=== PATIENT | male | born 1985 | race Caucasian/White ===

== ENCOUNTER 2017-02-03 09:49 | Inpatient (IN) | payer SELFPAY ==
[2017-02-03] MEDS ORDERED: LORazepam 2 MG/ML INJ ONE ×2 (09:53→10:10)
[2017-02-03] MEDS ORDERED: LORazepam 2 MG/ML INJ IVP ONE ×3 (09:56→10:12)
[2017-02-03] MEDS ORDERED: NS 1,000 ML IV ONE (10:14)
--- NOTE | 2017-02-03 10:19 | EDPHY ---
General - History Smoking Status: Never smoked Narrative: CHIEF COMPLAINT: Alcohol withdrawal, seizure HISTORY OF PRESENT ILLNESS: Patient presents by EMS from the [facility]. He seen at time of arrival. Report alcohol cessation abruptly with seizure yesterday and another seizure this morning. The seizure yesterday was a witness. The seizure this morning was witnessed by the [facility] staff. They went to give him his Librium when he vomited and had a seizure. This lasted for 1-2 minutes. He is feeling shaky and diaphoretic. He is feeling climb. His normal intake of alcohol was 750 mL of vodka daily. He stopped drinking Wednesday. He has no headache. He has no fever or chills. He does have episodes of vomiting. No other associated complaints or modifying factors. REVIEW OF SYSTEMS: Ten systems reviewed and are negative unless otherwise noted in the HPI PCP: None SPECIALISTS: Previous personal injury law specialist PAST MEDICAL HISTORY: Alcohol abuse PAST SURGICAL HISTORY: No surgeries SOCIAL HISTORY: Nonsmoker. Heavy alcohol use FAMILY HISTORY: Noncontributory EXAMINATION General Appearance: Alert, no distress, diaphoretic and tremulous Head: normocephalic, atraumatic Eyes: Pupils equal and round, no conjunctival pallor or injection. EOMs intact. No nystagmus ENT, Mouth: Mucous membranes moist Neck: Normal inspection, supple, non-tender Respiratory: Lungs are clear to auscultation tachypneic. No wheezing, rhonchi or crackles Cardiovascular: Tachycardic rate. Regular rhythm. No murmur. Gastrointestinal: Abdomen is soft and nontender Back: non-tender, no bony abnormalities Neurological: GCS 15. A&O, nonfocal, tremulous. Strength is symmetric. No unilateral deficits. Skin: Warm and dry, no rash no petechiae or purpura Extremities: Nontender, no pedal edema Psychiatric: Mood and affect normal DIFFERENTIAL DIAGNOSES: Including but not limited to alcohol withdrawal seizure, delirium tremens, alcohol abuse MDM: 10:15 a.m. Heavy alcohol user with cessation abruptly. Seizure yesterday that was unwitnessed. Seizure this morning that was witnessed at the [facility]. He is diaphoretic, tachycardic and tachypneic. He has no infective complaints. He is not cephalopathy. He is not hyper intensive or hyperthermic. Aggressive IV Ativan has been initiated. Plan for ICU admit. I discussed with Dr. Renee and she will evaluate. 10:20 a.m. Patient re-evaluated. No seizure-like activity thus far. His tachycardia is slowly improving. 10:35 a.m. Case discussed with hospitalist Betty Hartmann. Patient will be admitted to Dr. Schaeffer. He is admitted to the ICU. At this point he remains awake and alert. He is tachycardic but not encephalopathic. We are continue close monitoring and Ativan pushes. He is admitted in stable condition. 10:40 a.m. Patient re-evaluated. Still tremulous but he is awake and alert and improving. 11:00 a.m. Patient re-evaluated. He is starting to feel much better. Tachycardic but his rate is improving. He remains awake and alert. No encephalopathy. No seizure- like activity. 11:10 a.m. Patient re-evaluated. Still no seizure-like activity. He continues to improve. Room assignment has been made a report be called. He will be admitted in stable condition. (Simon Key) Differential Diagnosis: Differential diagnosis includes though not limited to delirium tremens, alcoholic ketoacidosis, hypoglycemia, dehydration. (Lesvia Renee) Discussion: This patient was seen and examined by me. He presents in alcohol withdrawal-- tachycardic, hypertensive and tremulous. Repeat doses of IV Ativan needed to control his symptoms. Chest is clear to auscultation, Cardiovascular-regular tachycardia, neurologic exam nonfocal. (Lesvia Renee) - Objective Vital Signs: Initial Vital Signs Temperature (C) 37.7 C 02/03/17 10:02 Heart Rate 125 H 02/03/17 10:02 Respiratory Rate 30 H 02/03/17 10:02 Blood Pressure 177/121 H 02/03/17 10:02 O2 Sat (%) 94 02/03/17 10:02 O2 Delivery Mode Room Air Allergies/Adverse Reactions: No Known Allergies Allergy (Unverified 02/03/17 10:04) Home Medications: Medication Instructions Recorded Ibuprofen/Diphenhydramine Cit 1 each PO HS PRN 02/03/17 [MOTRIN PM CAPLET] Laboratory Results: Laboratory Results 02/03/17 09:40 02/03/17 09:40 Medications Given: Chlordiazepoxide HCl (Librium) 25 mg PO TID RICHIE Stop: 08/02/17 16:29 Last Admin: 02/04/17 00:20 Dose: 25 mg Potassium Chloride/Sodium Chloride (Ns W/ 20 Kcl/L) 1,000 mls @ 75 mls/hr IV CONT RICHIE Stop: 08/02/17 11:29 Last Admin: 02/03/17 11:32 Dose: 1,000 mls Thiamine HCl 500 mg/ Sodium (Chloride) 105 mls @ 210 mls/hr IV DAILY RICHIE Stop: 08/02/17 12:14 Last Admin: 02/03/17 12:29 Dose: 105 mls Dexmedetomidine HCl 400 mcg/ (Sodium Chloride) 104 mls @ 0 mls/hr IV CONT PRN; Protocol; Titrate PRN Reason: Anxiety Stop: 08/02/17 16:29 Last Admin: 02/04/17 00:17 Dose: 104 mls Lorazepam (Ativan Injection) 0.5 - 3 mg IVP Q30M PRN PRN Reason: CIWA-Ar score greater than 15 Stop: 08/02/17 11:23 Last Admin: 02/03/17 16:16 Dose: 2 mg Discontinued Medications Chlordiazepoxide HCl (Librium) 25 mg PO TID PRN PRN Reason: Anxiety, Able to Take PO Stop: 08/02/17 11:23 Last Admin: 02/03/17 13:13 Dose: 25 mg Sodium Chloride (Ns) 1,000 mls @ 0 mls/hr IV ONCE ONE; Wide Open PRN Reason: Protocol Stop: 02/03/17 10:15 Last Admin: 02/03/17 10:16 Dose: 1,000 mls Lorazepam (Ativan Injection) 1 mg IVP EDNOW ONE Stop: 02/03/17 09:57 Last Admin: 02/03/17 09:57 Dose: 1 mg Lorazepam (Ativan Injection) 1 mg IVP EDNOW ONE Stop: 02/03/17 10:03 Last Admin: 02/03/17 10:03 Dose: 1 mg Lorazepam (Ativan Injection) 2 mg IVP EDNOW ONE Stop: 02/03/17 10:13 Last Admin: 02/03/17 10:14 Dose: 2 mg Departure - Departure Disposition: [facility] Acute Clinical Impression: Alcohol dependence with withdrawal with complication Condition: Fair
[2017-02-03 10:20] LABS: % IMMATURE GRANULYOCYTES 0.5 % (0.0-1.1); ABSOLUTE IMMATURE GRANULOCYTES 0.04 10^3/uL (0.00-0.10); ADD DIFF? NO; ADD MORPH? NO; ADD SCAN? NO; ATYPICAL LYMPHOCYTE FLAG 0 (0-99); FRAGMENT RBC FLAG 0 (0-99); HEMATOCRIT 49.5 % (40.0-51.0); HEMOGLOBIN 17.1 g/dL (13.7-17.5); LEFT SHIFT FLG 0 (0-99); LIPEMIA HEMOLYSIS FLAG 90 (0-99); MEAN CELL HEMOGLOBIN 35.1 pg (27.9-34.1); MEAN CELL HEMOGLOBIN CONCENTR. 34.5 g/dL (32.4-36.7); MEAN CELL VOLUME 101.6 fL (81.5-99.8); PLATELET CLUMPS FLAG 0 (0-99); PLATELET COUNT 280 10^3/uL (150-400); RED BLOOD CELL COUNT 4.87 10^6/uL (4.40-6.38); RED CELL DISTRIBUTION WIDTH 12.6 % (11.5-15.2)
[2017-02-03 10:27] LABS: ALANINE AMINOTRANSFERASE 203 IU/L (21-72); ALBUMIN 5.8 g/dL (3.5-5.0); ALKALINE PHOSPHATASE 75 IU/L (38-126); ANION GAP 31 mEq/L (8-16); ASPARTATE AMINOTRANSFERASE 175 IU/L (17-59); BILIRUBIN,TOTAL 1.4 mg/dL (0.1-1.4); BILIRUBIN-CONJUGATED 0.7 mg/dL (0.0-0.5); BILIRUBIN-UNCONJUGATED 0.7 mg/dL (0.0-1.1); CARBON DIOXIDE 17 mEq/l (22-31); CHLORIDE 99 mEq/L (97-110); CREATININE 0.9 mg/dL (0.7-1.3); GLOMERULAR FILTRATION RATE > 60; GLUCOSE 108 mg/dL (70-100); POTASSIUM 4.1 mEq/L (3.5-5.2); SODIUM 147 mEq/L (134-144); TOTAL PROTEIN 9.6 g/dL (6.3-8.2)
--- NOTE | 2017-02-03 10:31 | CPEKG ---
Heart Rate: 118 RR Interval: 508 P-R Interval: 116 QRSD Interval: 86 QT Interval: 328 QTC Interval: 460 P Stockton: 23 QRS Stockton: 70 T Wave Stockton: -78 EKG Severity - ABNORMAL ECG - EKG Impression: SINUS TACHYCARDIA EKG Impression: BORDERLINE INFERIOR Q WAVES EKG Impression: NONSPECIFIC T ABNORMALITIES, DIFFUSE LEADS Electronically Signed By: Lesvia Renee 04-Feb-2017 10:38:05
[2017-02-03 10:39] LABS: TROPONIN I < 0.012 ng/mL (0.000-0.034)
[2017-02-03] MEDS ORDERED: ONDANSETRON 4 MG/2 ML VIAL IVP PRN (11:20)
[2017-02-03] MEDS ORDERED: ACETAMINOPHEN 325 MG TAB PO PRN (11:20)
[2017-02-03] MEDS ORDERED: ONDANSETRON DISINTEGRATING 4 MG TAB PO PRN (11:20)
[2017-02-03] MEDS ORDERED: chlordiazePOXIDE 25 MG CAP PO PRN (11:24)
[2017-02-03] MEDS ORDERED: NS W/ 20 KCl/L 1,000 ML IV SCH (11:30)
[2017-02-03] MEDS: LORazepam 2 MG/ML INJ IVP PRN ×5 (11:33→16:16)
[2017-02-03] MEDS: THIAMINE HCL 500 MG in NS 100 ML IV SCH (12:29)
--- NOTE | 2017-02-03 13:07 | GCON ---
[f rep st] CONSULTATION SAP SENIOR DEVELOPER CONSULTATION REASON FOR ADMISSION: Alcohol withdrawal. HISTORY OF PRESENT ILLNESS: The patient is a 31-year-old white male with a past medical history of a lcoholism. He presented to the emergency room [facility]. He had st opped drinking yesterday and had a witnessed seizure, was brought here. The patient was then subsequ ently admitted to the intensive care unit. In discussion with the patient, he states he feels shaky and has some nausea, but other than that, feels well. He stopped drinking the day before, at which t alayna, he was drinking about 750 mL of vodka daily. His girlfriend and child are at the bedsid e. PAST MEDICAL HISTORY: Significant for alcoholism. ALLERGIES: None known to medications. SOCIAL HISTORY: No history of tobacco use. Heavy alcohol use, in particular, vodka. No drug use. WORK HISTORY: He is a production line worker. He is single, but has a girlfriend, a child. Lived in [place] all of his life. PAST SURGICAL HISTORY: None. PAST MEDICAL HISTORY: None. PHYSICAL EXAM: VITAL SIGNS: Blood pressure is 138/77, pulse 118, respirations 20, temperature 37.2, oxygen saturation 92% on 2 L. GENERAL: He is a well-developed, well-nourished, 31-year-old white m timbo, who is tremulous and tachycardic. HEENT: Eyes: PERRLA. EOMI. Throat shows no erythema or to nsillar hypertrophy. NECK: Supple. No cervical adenopathy. HEART: Regular rate and rhythm, but t achycardic. LUNGS: Diminished breath sounds, but no wheeze. ABDOMEN: Soft, nontender. Bowel soun ds present in all 4 quadrants. EXTREMITIES: Show tremors. LABORATORIES: White count is 8.8, hemoglobin 17, hematocrit 49, platelet count is 280. Sodium 147, potassium 4.1, chloride 99, CO2 is 17, BUN is 10, creatinine 0.9, glucose 108. AST is elevated at 17 5, ALT is 203. Lipase is mildly elevated at 429. IMPRESSION: 1. Alcoholism. 2. Acute alcohol withdrawal. 3. Elevated transaminases secondary to alcohol. RECOMMENDATION: 1. After a long discussion with the patient, he wishes to quit drinking alcohol. 2. Start CIWA protocol. 3. DVT and PE prophylaxis. 4. Stress ulcer prophylaxis. 5. Adequate pain control. 6. Watch for further seizures. /[id number]/MODL
--- NOTE | 2017-02-03 13:15 | PDGENHP ---
History and Physical History and Physical: CC: Alcohol withdrawal seizure HISTORY: This patient has a long history of drinking heavily and has been drinking a 750 mL bottle of vodka daily for a long time at this point. He has 1 previous history of alcohol withdrawal episode that was minor in brief but it sounds like he went back to drinking fairly quickly after this but was 2 months ago. At this point he decided to quit drinking and got a leave from work specifically do this and signed herself into the alcohol recovery center where he was going through detoxification. He was receiving benzodiazepine but today had a prolonged seizure lasting 2-3 minutes. He was therefore transferred to the emergency room. He has had a total of 2 seizures now today. In order to maintain adequate safety in control he is being admitted to the intensive care unit or will continue monitoring and treatment here. He has no previous seizure history but does have a history of 8 concussions playing some college and high school soccer. There are no other neurologic illnesses and no intracranial surgeries. He uses no prescription or street drugs prior to this admission. Regarding support for his withdrawal he does have a girlfriend and his coworkers to employ ears are all very supportive. He plans on actively engaging in chronic recovery therapy after this admission. ROS: A comprehensive 10 system review revealed no other significant findings PAST MEDICAL HISTORY: Chronic alcohol abuse and alcoholism and 1 episode of previous alcohol withdrawal FAMILY MEDICAL HISTORY: Alcoholism SOCIAL HISTORY: Single but has a girlfriend and they have just had a young baby who is 6-week- old and his girlfriend and daughter are here with him in the bedside right now very supportive. He does not use any tobacco or street drugs. 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 He lives in [place]. He does not have a primary care physician at this time. MEDICATIONS: The patients list has been reconciled by our clinical pharmacist in the EMR. I have reviewed the list and ordered appropriate medicines. PHYSICAL EXAMINATION: Vital Signs: Tachycardic at 113 now was more tachycardic previous before several episodes of benzodiazepine, borderline hypertension, low-grade fever 37.7 Puzzle Assembler: Sinus tachycardia Examination: (after several doses of benzodiazepine) General: alert, oriented, somewhat anxious and has an obvious tremor Neurologic: normal speech/language, normal bessemer bottom maker, no focal weakness, pupils normal Skin: warm, dry, good color no jaundice, no rash HEENT: normal Neck: no mass or jvd Resps: relaxed Lungs: clear breath sounds Heart: regular, no murmur Abdomen: soft, nondistended, nontender, +BS, no mass Upper Extremities: normal Lower Extremities: no edema, warm No Bleeding or bruising IV site: looks normal LABORATORY DATA: CO2 on chemistry 17, sodium 147, mildly elevated glucose, ALT 203 AST 170s bilirubin okay Some macrocytosis but not anemic Urine drug screen has benzodiazepine consistent with this treatment at the [facility] but no other findings RADIOLOGY STUDIES: Chest x-ray done in the ER, my interpretation of the images: Normal chest x-ray 12 LEAD EKG: Done in the ER, my interpretation of the tracing: Sinus tachycardia otherwise normal EKG ASSESSMENT: -acute alcohol withdrawal with seizure while receiving benzodiazepine at the [facility] ; this is his 1st ever episode of seizure -metabolic acidosis from the seizure but no other signs of injury from the seizure -mild elevation of transaminases could represent hepatic steatosis, alcohol hepatitis, or other cause. We will need to check for viral hepatitis -suspect thiamine deficiency -alcoholism with desire to quit drinking -does not have a primary care physician will want to set him up with a primary care physician before discharge PLANS: -standard see while monitoring and standard treatment protocols for his alcohol withdrawal -monitor electrolytes closely and treat as indicated -scheduled benzodiazepine for seizure prevention and will have him on seizure precautions -check hepatitis B and C -thiamin replacement is ordered -DVT prophylaxis -ongoing alcohol counseling here and set him up with a good program upon discharge I have reviewed the patient's case in detail with Dr. Shell
--- NOTE | 2017-02-03 14:57 | ASMTCMCOM ---
CM Note CM Note Notes: Patient admitted for alcohol withdrawal after having two witnessed seizures at the [facility]. Patient is employed and engaged to his fiance with whom he has a 6 week old baby. He enrolled himself at the [facility] with motivation to quit drinking, which has been doing heavily for some time. Per H&P, he wants to pursue alcohol treatment after this admission. Patient is currently listed at self-pay - Medicaid specialist will follow him today and refer to Financial Counseling if necessary. This will determine what kind of rehab options we can discuss with him. Patient is currently too ill from withdrawal to speak with CM; per RN, he was unable to complete PT/OT evals due to symptoms. CM will follow. Date Signed: 02/03/2017 02:56 PM Electronically Signed By:Emma Powers RN
--- NOTE | 2017-02-03 15:36 | PDMN ---
Medical Necessity Medical necessity: Patient meets INPT criteria per MD note and [id number] Substance-Related Disorders (acute alcohol withdrawal w/witnessed seizure while receiving benzodiazepine; last alcohol 02/02; anion gap 31/ metabolic acidosis s /p seizure, mildly elevated LFT's; tremulous; anticipated LOS > 2 midnights for seizure precautions/scheduled benzodiazemine, IV hydration w/MVI, Ativan prn, ongoing counseling.)
[2017-02-03] MEDS: DEXMEDETOMIDINE HCL 400 MCG in NS 100 ML IV PRN (17:11)
[2017-02-03] MEDS: chlordiazePOXIDE 25 MG CAP PO SCH (17:11)
[2017-02-04] MEDS: DEXMEDETOMIDINE HCL 400 MCG in NS 100 ML IV PRN (00:17)
[2017-02-04] MEDS: chlordiazePOXIDE 25 MG CAP PO SCH ×4 (00:20→22:11)
[2017-02-04 04:52] LABS: % IMMATURE GRANULYOCYTES 0.3 % (0.0-1.1); ABSOLUTE IMMATURE GRANULOCYTES 0.01 10^3/uL (0.00-0.10); ADD DIFF? NO; ADD MORPH? NO; ADD SCAN? NO; ATYPICAL LYMPHOCYTE FLAG 10 (0-99); FRAGMENT RBC FLAG 0 (0-99); HEMATOCRIT 41.2 % (40.0-51.0); HEMOGLOBIN 14.4 g/dL (13.7-17.5); LEFT SHIFT FLG 0 (0-99); LIPEMIA HEMOLYSIS FLAG 90 (0-99); MEAN CELL HEMOGLOBIN 35.2 pg (27.9-34.1); MEAN CELL VOLUME 100.7 fL (81.5-99.8); MEAN PLATELET VOLUME 9.8 fL (8.7-11.7); PLATELET CLUMPS FLAG 10 (0-99); PLATELET COUNT 127 10^3/uL (150-400); RED BLOOD CELL COUNT 4.09 10^6/uL (4.40-6.38); RED CELL DISTRIBUTION WIDTH 11.9 % (11.5-15.2)
[2017-02-04 05:10] LABS: ALANINE AMINOTRANSFERASE 132 IU/L (21-72); ALBUMIN 4.1 g/dL (3.5-5.0); ALKALINE PHOSPHATASE 48 IU/L (38-126); ANION GAP 14 mEq/L (8-16); ASPARTATE AMINOTRANSFERASE 105 IU/L (17-59); BILIRUBIN,TOTAL 1.9 mg/dL (0.1-1.4); CALCIUM 8.9 mg/dL (8.5-10.4); CARBON DIOXIDE 25 mEq/l (22-31); CHLORIDE 102 mEq/L (97-110); CREATININE 0.9 mg/dL (0.7-1.3); GLOMERULAR FILTRATION RATE > 60; GLUCOSE 91 mg/dL (70-100); MAGNESIUM 1.5 mg/dL (1.6-2.3); POTASSIUM 3.7 mEq/L (3.5-5.2); SODIUM 141 mEq/L (134-144); TOTAL PROTEIN 7.1 g/dL (6.3-8.2)
[2017-02-04] MEDS: ENOXAPARIN 40 MG/0.4 ML SYR SC SCH (08:23)
[2017-02-04] MEDS: MULTIVITAMINS 1 EACH TAB PO SCH (08:24)
[2017-02-04] MEDS: THIAMINE HCL 500 MG in NS 100 ML IV SCH (08:50)
--- NOTE | 2017-02-04 09:17 | HOSPPROG ---
Hospitalist Progress Note Assessment/Plan: DIAGNOSES: -acute alcohol withdrawal with seizure while receiving benzodiazepine at the [facility] ; this is his 1st ever episode of seizure -metabolic acidosis from the seizure but no other signs of injury from the seizure; resolved -mild elevation of transaminases could represent hepatic steatosis, alcohol hepatitis, or other cause. We will need to check for viral hepatitis -suspect thiamine deficiency -alcoholism with desire to quit drinking -does not have a primary care physician will want to set him up with a primary care physician before discharge Overnight patient had higher CIWA scores and required treatment with Precedex drip. He is currently doing well on the Precedex drip, arousable but reasonably relaxed with good vital signs and no recurrent seizures. Is receiving ongoing benzodiazepine to suppress seizure. Reviewed in detail with Dr. Radu Shell Seen on multidisciplinary rounds PLANS: -continue CIWA monitoring, continue Precedex drip -continue scheduled benzodiazepine for seizure suppression -continue thiamine replacement therapy -when stable for discharge will trend sure he has plans in place for moving forward with ongoing counseling and rehab -diet and activity as able depending on safety -hepatitis-B and C serologies pending SUBJECTIVE: Denies pain or other physical discomforts Feels much less anxious on the Precedex drip OBJECTIVE Vitals reviewed: Stable without fever Nipple Maker, my review: Sinus Exam: Quite somnolent and was asleep but is arousable to conversation, oriented Mildly anxious, currently no tremor though tremor was graded at 7 last night before starting Precedex skin warm dry color ok resps not labored lungs clear BSs heart regular abd soft nondistended nontender, bowel sounds present limbs warm, no edema iv site ok Laboratory data: Liver enzymes slightly better Objective: Vital Signs Temp Pulse Resp BP Pulse Ox 37.1 C 59 L 17 132/89 H 96 02/04/17 08:00 02/04/17 08:00 02/04/17 08:00 02/04/17 08:00 02/04/17 08:00 Laboratory Results 02/04/17 04:35 02/04/17 04:35 02/03/17 02/04/17 02/05/17 06:59 06:59 06:59 Intake Total 1934 Output Total 500 Balance 1434 ICD10 Worksheet Patient Problems: Problems Problem Status Onset Alcohol dependence with withdrawal with complication Acute
--- NOTE | 2017-02-04 09:49 | PDINTPN ---
Manager General Progress Note Assessment/Plan: Assessment: * Acute alcohol withdrawals-on Precedex last night. Likely able to taper off today * Alcoholism * Tremors-have route Plan: Continue present care Subjective: Resting comfortably. Denies any pain. Tremors have improved. Objective: Vital Signs Temp Pulse Resp BP Pulse Ox 37.1 C 59 L 17 132/89 H 96 02/04/17 08:00 02/04/17 08:00 02/04/17 08:00 02/04/17 08:00 02/04/17 08:00 Laboratory Results 02/04/17 04:35 02/04/17 04:35 02/03/17 02/04/17 02/05/17 05:59 05:59 05:59 Intake Total 1934 Output Total 500 Balance 1434 Physical Exam - Physical Exam General Appearance: alert, no apparent distress EENT: PERRL/EOMI, normal ENT inspection Neck: non-tender, full range of motion, supple, normal inspection Respiratory: chest non-tender, lungs clear, normal breath sounds Cardiac/Chest: normal peripheral pulses, regular rate, rhythm Peripheral Pulses: 2+: carotid (R), carotid (L), femoral (R), femoral (L), dorsalis-pedis (R), dorsalis-pedis (L) Abdomen: normal bowel sounds, non-tender, soft Male Genitalia: deferred Rectal: deferred Skin: normal color, warm/dry Neuro/Psych: other (Hand tremors) ICD10 Worksheet Patient Problems: Problems Problem Status Onset Alcohol dependence with withdrawal with complication Acute
[2017-02-04] MEDS: LORazepam 2 MG/ML INJ IVP PRN ×2 (11:25→15:15)
--- NOTE | 2017-02-04 17:02 | ASMTCMCOM ---
CM Note CM Note Notes: Chart reviewed. Patient moved to SDU. He is alert. He wishes to pursue outpatient interventions to support his alcohol addiction recovery. Medicaid pending, he reports he has to return to work as his is on maternity leave with 6 week old infant. Patient provided with information on sources in [place] where he resides. He feels this is best for him and his family at this point. CM to follow. Date Signed: 02/04/2017 05:01 PM Electronically Signed By:Vivien Kenney RN
[2017-02-05] MEDS: LORazepam 2 MG/ML INJ IVP PRN (00:34)
[2017-02-05 05:06] LABS: % IMMATURE GRANULYOCYTES 0.3 % (0.0-1.1); ABSOLUTE IMMATURE GRANULOCYTES 0.01 10^3/uL (0.00-0.10); ADD DIFF? NO; ADD MORPH? NO; ADD SCAN? NO; ATYPICAL LYMPHOCYTE FLAG 20 (0-99); FRAGMENT RBC FLAG 0 (0-99); HEMATOCRIT 41.7 % (40.0-51.0); LEFT SHIFT FLG 0 (0-99); LIPEMIA HEMOLYSIS FLAG 90 (0-99); MEAN CELL HEMOGLOBIN 35.5 pg (27.9-34.1); MEAN CELL VOLUME 98.8 fL (81.5-99.8); MEAN PLATELET VOLUME 10.1 fL (8.7-11.7); PLATELET CLUMPS FLAG 30 (0-99); PLATELET COUNT 117 10^3/uL (150-400); RED BLOOD CELL COUNT 4.22 10^6/uL (4.40-6.38); RED CELL DISTRIBUTION WIDTH 11.9 % (11.5-15.2)
[2017-02-05 05:15] LABS: ALANINE AMINOTRANSFERASE 166 IU/L (21-72); ALBUMIN 4.3 g/dL (3.5-5.0); ALKALINE PHOSPHATASE 54 IU/L (38-126); ANION GAP 15 mEq/L (8-16); ASPARTATE AMINOTRANSFERASE 179 IU/L (17-59); BILIRUBIN,TOTAL 1.7 mg/dL (0.1-1.4); CALCIUM 9.3 mg/dL (8.5-10.4); CARBON DIOXIDE 24 mEq/l (22-31); CHLORIDE 103 mEq/L (97-110); CREATININE 0.9 mg/dL (0.7-1.3); GLOMERULAR FILTRATION RATE > 60; GLUCOSE 113 mg/dL (70-100); MAGNESIUM 1.8 mg/dL (1.6-2.3); POTASSIUM 3.3 mEq/L (3.5-5.2); SODIUM 142 mEq/L (134-144); TOTAL PROTEIN 7.4 g/dL (6.3-8.2)
[2017-02-05 08:08] VITALS: BP 135/80; PULSE 81; RESP 15; TEMP 98.4; O2SAT 92
[2017-02-05] MEDS: MULTIVITAMINS 1 EACH TAB PO SCH (08:53)
[2017-02-05] MEDS: chlordiazePOXIDE 25 MG CAP PO SCH (08:53)
[2017-02-05] MEDS: ENOXAPARIN 40 MG/0.4 ML SYR SC SCH (08:54)
[2017-02-05] MEDS: THIAMINE HCL 500 MG in NS 100 ML IV SCH (08:54)
--- NOTE | 2017-02-05 12:24 | ASMTCMCOM ---
CM Note CM Note Notes: Chart reviewed. Patient medically cleared for discharge. Met with him to review dc POC. Patient has no insurance. Currently applying for medicaid. He is determined to quit alcohol and reports he has suffered through multiple substance abuses in the past. He has strong support with a fiance, mother and incentive to be sober as he is a new father. Concerned for follow up and risk of relapse. Provided with P crisis numbers, suggestions for PCP and contact information for [facility] [place] where patient resides. Also Given Michael Rees phone number as he may serve as a resource ([phone]). ( I did explain that [facility] are insurance driven programs but that Michael may be a resource for him) I strongly urged him and his fiance to have a follow up appointment in place for early next week. Current plan of care is home independent. Date Signed: 02/05/2017 12:24 PM Electronically Signed By:Vivien Kenney RN
--- NOTE | 2017-02-05 12:42 | GDS ---
[f rep st] DISCHARGE SUMMARY DISCHARGE DIAGNOSES: 1. Acute alcohol withdrawal. 2. Improving metabolic acidosis secondary to seizure due to above. 3. Alcoholic hepatitis. 4. Alcoholism. HOSPITAL COURSE: Acute alcohol withdrawal: The patient was admitted to the intensive care unit due to his severe alcohol withdrawal symptoms. He was treated with Precedex and benzodiazepines. The Pr ecedex was stopped yesterday. On the day of discharge, the patient is atremulous and says he is feel ing well enough to go home. He does want to quit drinking. DISCHARGE PHYSICAL EXAMINATION: VITAL SIGNS: Blood pressure 135/80, pulse rate 81, respiratory rate 15, O2 SAT 92% on room air, temperature afebrile. GENERAL: No acute distress. NEUROLOGIC: Atremu lous. Alert and oriented to person, place, and time. PERTINENT LABORATORY AND STUDIES: During this hospital stay, chest x-ray done on admission was witho ut evidence for aspiration. Hepatitis C antibody and hep B surface antigen were negative. AST was 1 79 with ALT of 166 on day of discharge, decreased from 175 and 203 respectively. DISCHARGE MEDICATIONS: None. DISCHARGE INSTRUCTIONS: The patient will be discharged home where he is instructed to start alcohol cessation program. He was given resources for this before discharge. /[id number]/MODL
== END 2017-02-05 12:10 | disposition home or self-care (01) | DRG 897 ==
LOC: F2N 11:12
PROVIDERS: ADMIT Internal Medicine; ATTEND Family Medicine
PROC: HZ2ZZZZ Detoxification Services for Substance Abuse Treatment (ICD-10-PCS; principal; 2017-02-03)
DX: F10.239 Alcohol dependence with withdrawal, unspecified (principal); R56.9 Unspecified convulsions; E87.2 Acidosis; K70.10 Alcoholic hepatitis without ascites
CPT/HCPCS: 80305; 96374; 97116-GP; 97161-GP; 97166-GO; 97535-GO; G0472; J1650; J2060; J3411